=== PATIENT | male | born 1975 | race African-American/Black ===

== ENCOUNTER 2023-01-17 23:28 | Observation (INO) ==
[2023-01-18] MEDS ORDERED: DEXAMETHASONE SOD INJ 4 MG/ML VIAL IV STA (00:09)
[2023-01-18] MEDS ORDERED: HYDROcodone/HOMATROPINE SYRUP 5MG/1.5MG 5ML UDP PO STA (00:09)
[2023-01-18 00:26] LABS: Basophils # (auto) 0.07 K/uL (0-0.2); Basophils % (auto) 0.8 %; Eosinophils % (auto) 1.1 %; Hematocrit (blood only) 44.7 % (42.0-52.0); Hemoglobin 15.2 g/dl (14.0-18.0); Immature Granulocytes # (auto) 0.05 K/uL (0.01-0.20); Immature Granulocytes % (auto) 0.5 %; Lymphocytes # (auto) 2.04 K/uL (1.2-3.4); Mean Corpuscular Hemoglobin 29.4 pg (25.0-34.0); Mean Corpuscular Volume 86.5 fL (80.0-100.0); Mean Platelet Volume 10.4 fL (9.4-12.4); Monocytes # (auto) 1.18 K/uL (0.11-0.59); Monocytes % (auto) 12.7 %; Neutrophils # (auto) 5.84 K/uL (1.40-6.50); Neutrophils % (auto) 62.9 %; Platelet Count 255 K/uL (130-400); RDW Coefficient of Variation 12.7 % (11.5-14.5); Red Blood Count 5.17 M/uL (4.70-6.10); White Blood Count 9.28 K/ul (4.8-10.8)
[2023-01-18 00:44] LABS: Albumin Globulin Ratio 1.3 (0.9-2); Albumin Level 4.3 gm/dl (3.4-5.0); Bilirubin,Total 0.4 mg/dl (0.2-1.0); Calcium 9.1 mg/dl (8.6-10.3); Creatinine Clr Calc Pharmacy 118.3 ml/min; Est GFR (African American) 73.3 ml/min; Est GFR (Non-African American) 63.2 ml/min; Globulin 3.4 gm/dl (2.5-4.0); Potassium 3.3 mmol/L (3.5-5.1); Total Protein 7.7 gm/dl (6.0-8.3)
[2023-01-18 00:50] LABS: Troponin I High Sensitivity 10.5 pg/ml (0-20)
[2023-01-18 01:00] LABS: D Dimer 1000 ug/L FEU (0-500)
[2023-01-18] MEDS ORDERED: IOVERSOL 350 MG 125mL Prefilled Syringe IV ONE (01:11)
--- NOTE | 2023-01-18 01:14 | Emergency Department Note ---
Impression & Plan Left lower lobe pneumonia, Chest tightness Admit to the [facility] ED Provider Note NAME: JAMISON PIERSON AGE: 47 SEX: M ARRIVES VIA: Walk-In INFORMANT: Patient ED PROVIDER(S): Patience Floyd DO CHIEF COMPLAINT: Chest tightness; palpitations; diaphoresis PLAN: Disposition: Admit to the [facility] Condition: Guarded MEDICAL DECISION MAKING: This is a 47-year-old male patient who was diagnosed with bronchitis and started on doxycycline and Tessalon Perles through urgent care who presents to the emergency department with chest tightness, palpitations and diaphoresis tonight. Patient had an elevated D-dimer went for CT scan of the chest which confirmed a left lower lobe pneumonia but no evidence of PE. Patient was started on IV Rocephin and IV Zithromax. EKG revealed no ischemic changes. Troponin was normal. Glucose was 128. Lipase was normal. There was no leukocytosis and stable H&H. Patient was moderately hypertensive and tachycardic. [facility] for [facility] care. Triage Nursing notes reviewed and agree with them. Vital Signs: reviewed and remarkable for tachycardia and hypertension Differential diagnosis: Pneumonia, bronchitis, cardiac ischemia, PE ER treatment provided: Cardiac monitoring Twelve-lead EKG Hycodan cough syrup IV Decadron IV Rocephin IV Zithromax Diagnostics interpreted by me: ECG: Sinus tachycardia at [address] segment elevation or signs of ischemia. No ectopy Cardiac Monitoring: Sinus tachycardia at 105 Laboratory studies: See below Imaging studies: As per my independent interpretation Portable chest x-ray: Cardiomegaly and left lower lobe opacity consistent with pneumonia CT scan of the chest: See stat rad report HPI: 47/M arrives for evaluation of chest tightness and palpitations. Patient had been diagnosed recently with bronchitis at urgent care center and started on doxycycline and Tessalon Perles. He became more concerned tonight as he developed chest tightness, palpitations and diaphoresis. Patient explains that he makes frequent car trips to [place] and has a cardiac history. He was most concerned about the amount of sweating that he has been doing tonight. He has an unrelenting cough which causes him significant chest discomfort. PAST MEDICAL HISTORY:See Below PAST SURGICAL HISTORY:See Below FAMILY HISTORY:See Below SOCIAL HISTORY:See Below HOME MEDICATIONS:See list ALLERGIES:None VITALS:See Below PHYSICAL EXAMINATION: HEENT: Head - normocephalic and atraumatic. Pupils are equal, round, and reactive to light. Extraocular eye muscles are intact, and sclera are anicteric. Nose - moist nasal mucosa without discharge. Mouth - moist buccal mucosa. Oropharynx is nonerythematous and there is no tonsillar exudate or edema noted. Neck: Supple; no JVD or cervical lymphadenopathy Heart: Tachycardic rate and regular rhythm. There is a normal S1 and S2 with no murmurs, clicks, or gallops appreciated. Lungs: Clear to auscultation bilaterally with no wheezes, rales, or rhonchi. Abdomen: Soft, completely nontender, nondistended, with good bowel sounds. There are no palpable pulsatile masses or hepatosplenomegaly. There is no guarding, rigidity, or rebound noted. Extremities: No evidence of cyanosis, clubbing, or edema. There are easily palpable peripheral pulses. Skin: warm and dry with good turgor and no rashes. ED COURSE: Times/Reassessments: 2330 patient was evaluated in room A-10. A complete history and physical was performed. An IV lock was initiated and labs were drawn as above. Twelve-lead EKG was obtained as described above. An order was placed for continuous cardiac monitoring. Patient was in a sinus tachycardia at 105. Patient was given an oral dose of Hycodan cough syrup. He received 10 mg of IV Decadron. A portable chest x-ray was performed. D-dimer came back significantly elevated and the patient went for CT scan of the chest. Patient had a septic protocol performed. I reviewed results with the patient and the he was started on IV Rocephin and IV Zithromax. I discussed the case with the [facility] Hospitalist and they will evaluate for further management. Patience Floyd DO Past Med/Surg History Medical History Dyslipidemia Hx of renal calculi Hypertension Obesity Surgical History History of colonoscopy Social History Smoking Status: Never smoker Hx Alcohol Use: Yes Alcohol type: hard liquor Hx Substance Use: No Preferred Language: Occitan Communication Ability: Effective Security Incident Response Specialist Required: No Beliefs That Will Affect Care: None Current Living Situation: Family Feels Safe at Home: Yes Assistive Devices: CPAP Allergies Allergies Allergy/AdvReac Type Severity Reaction Status Date / Time No Known Allergies Allergy Verified 01/18/23 01:58 Home Meds Home Medications Medication Instructions Recorded Confirmed aspirin 81 mg tablet,delayed 81 mg PO HS 12/02/21 01/18/23 release metoprolol succinate 25 mg 12.5 mg PO HS 12/02/21 01/18/23 tablet,extended release 24 hr hydrochlorothiazide 25 mg tablet 25 mg PO HS 09/27/22 01/18/23 valsartan 320 mg tablet 320 mg PO HS 09/27/22 01/18/23 Previous Rx's Medication Instructions Recorded azithromycin 500 mg tablet 500 mg PO DAILY 3 days #3 tabs 01/18/23 benzonatate 100 mg capsule 100 mg PO TID PRN cough 4 days #14 01/18/23 caps cefdinir 300 mg capsule 300 mg PO BID 7 days #14 caps 01/18/23 guaifenesin 600 mg tablet, 1,200 mg PO Q12 7 days #28 tabs 01/18/23 extended release 12 hr (Mucinex) methylprednisolone 4 mg tablets in 4 mg PO DAILY #21 ea 01/18/23 a dose pack (Medrol (Han)) Results & Data (ED) Vital Signs Vital Signs - 24 hr 01/18/23 01:30 01/18/23 01:31 01/18/23 01:40 Temperature Temperature Source Pulse Rate 78 78 82 Pulse Rate from SpO2 Sensor 78 78 83 Respiratory Rate 13 10 L 18 Blood Pressure 158/92 H Blood Pressure Mean 114 Pulse Oximetry 94 93 92 01/18/23 01:50 01/18/23 02:00 01/18/23 02:01 Temperature Temperature Source Pulse Rate 77 77 79 Pulse Rate from SpO2 Sensor 77 76 80 Respiratory Rate 19 19 16 Blood Pressure 152/98 H Blood Pressure Mean 116 Pulse Oximetry 93 96 92 01/18/23 02:10 01/18/23 02:20 01/18/23 02:29 Temperature Temperature Source Pulse Rate 70 72 74 Pulse Rate from SpO2 Sensor 70 74 Respiratory Rate 19 15 Blood Pressure Blood Pressure Mean Pulse Oximetry 96 95 07/20/23 02:30 01/18/23 02:31 01/18/23 02:40 Temperature Temperature Source Pulse Rate 72 68 84 Pulse Rate from SpO2 Sensor 69 70 82 Respiratory Rate 19 14 18 Blood Pressure 165/91 H Blood Pressure Mean 115 Pulse Oximetry 96 95 95 01/18/23 02:50 01/18/23 03:00 01/18/23 03:10 Temperature Temperature Source Pulse Rate 73 74 70 Pulse Rate from SpO2 Sensor 72 75 68 Respiratory Rate 19 18 17 Blood Pressure Blood Pressure Mean Pulse Oximetry 95 95 95 01/18/23 03:20 01/18/23 03:30 01/18/23 02:00 Temperature 36.8 C Temperature Source Oral Pulse Rate 69 72 Pulse Rate from SpO2 Sensor 70 69 Respiratory Rate 16 15 Blood Pressure Blood Pressure Mean Pulse Oximetry 95 95 Laboratory Data 01/17/23 23:54 01/17/23 23:54 Lab Results 01/17/23 01/17/23 01/17/23 Range/Units 23:54 23:54 23:54 WBC 9.28 (4.8-10.8) K/ul RBC 5.17 (4.70-6.10) M/uL Hgb 15.2 (14.0-18.0) g/dl Hct 44.7 (42.0-52.0) % MCV 86.5 (80.0-100.0) fL MCH 29.4 (25.0-34.0) pg MCHC 34.0 (32.0-36.0) g/dL RDW Std Deviation 40.0 (36.4-46.3) fL RDW Coeff of Rob 12.7 (11.5-14.5) % Plt Count 255 (130-400) K/uL MPV 10.4 (9.4-12.4) fL Immature Gran % (Auto) 0.5 % Neut % (Auto) 62.9 % Lymph % (Auto) 22.0 % [place] % (Auto) 12.7 % Eos % (Auto) 1.1 % Baso % (Auto) 0.8 % Neut # (Auto) 5.84 (1.40-6.50) K/uL Lymph # (Auto) 2.04 (1.2-3.4) K/uL [place] # (Auto) 1.18 H (0.11-0.59) K/uL Eos # (Auto) 0.10 (0-0.50) K/uL Baso # (Auto) 0.07 (0-0.2) K/uL Immature Gran # (Auto) 0.05 (0.01-0.20) K/uL D-Dimer 1000 H* (0-500) ug/L FEU Sodium 137 (136-145) mmol/L Potassium 3.3 L (3.5-5.1) mmol/L Chloride 98 (98-107) mmol/L Carbon Dioxide 28 (21-32) mmol/L Anion Gap 11 (3-11) BUN 16 (6-23) mg/dl Creatinine 1.33 (0.6-1.4) mg/dl Est Cr Clr Drug Dosing 118.3 ml/min Est GFR ( Amer) 73.3 ml/min Est GFR (Non-Af Amer) 63.2 ml/min BUN/Creatinine Ratio 12.0 (10-20) Glucose 128 H (70-99(Fasting)) mg/dl Lactate (0.4-2.0) mmol/L Calcium 9.1 (8.6-10.3) mg/dl Total Bilirubin 0.4 (0.2-1.0) mg/dl AST 33 (13-39) U/L ALT 26 (7-52) U/L Alkaline Phosphatase 71 (34-104) U/L Troponin I High Sens 10.5 (0-20) pg/ml Total Protein 7.7 (6.0-8.3) gm/dl Albumin 4.3 (3.4-5.0) gm/dl Globulin 3.4 (2.5-4.0) gm/dl Albumin/Globulin Ratio 1.3 (0.9-2) Lipase 25 (11-82) U/L Procalcitonin (0-0.5) ng/ml SARS-CoV-2, RNA, NAAT (NEGATIVE) 01/18/23 01/18/23 01/18/23 Range/Units 02:52 02:52 03:06 WBC (4.8-10.8) K/ul RBC (4.70-6.10) M/uL Hgb (14.0-18.0) g/dl Hct (42.0-52.0) % MCV (80.0-100.0) fL MCH (25.0-34.0) pg MCHC (32.0-36.0) g/dL RDW Std Deviation (36.4-46.3) fL RDW Coeff of Rob (11.5-14.5) % Plt Count (130-400) K/uL MPV (9.4-12.4) fL Immature Gran % (Auto) % Neut % (Auto) % Lymph % (Auto) % [place] % (Auto) % Eos % (Auto) % Baso % (Auto) % Neut # (Auto) (1.40-6.50) K/uL Lymph # (Auto) (1.2-3.4) K/uL [place] # (Auto) (0.11-0.59) K/uL Eos # (Auto) (0-0.50) K/uL Baso # (Auto) (0-0.2) K/uL Immature Gran # (Auto) (0.01-0.20) K/uL D-Dimer (0-500) ug/L FEU Sodium (136-145) mmol/L Potassium (3.5-5.1) mmol/L Chloride (98-107) mmol/L Carbon Dioxide (21-32) mmol/L Anion Gap (3-11) BUN (6-23) mg/dl Creatinine (0.6-1.4) mg/dl Est Cr Clr Drug Dosing ml/min Est GFR ( Amer) ml/min Est GFR (Non-Af Amer) ml/min BUN/Creatinine Ratio (10-20) Glucose (70-99(Fasting)) mg/dl Lactate 0.9 (0.4-2.0) mmol/L Calcium (8.6-10.3) mg/dl Total Bilirubin (0.2-1.0) mg/dl AST (13-39) U/L ALT (7-52) U/L Alkaline Phosphatase (34-104) U/L Troponin I High Sens (0-20) pg/ml Total Protein (6.0-8.3) gm/dl Albumin (3.4-5.0) gm/dl Globulin (2.5-4.0) gm/dl Albumin/Globulin Ratio (0.9-2) Lipase (11-82) U/L Procalcitonin < 0.05 (0-0.5) ng/ml SARS-CoV-2, RNA, NAAT NEGATIVE (NEGATIVE) Administered Medications Discontinued Medications Dexamethasone (Dexamethasone Sod Inj 4 Mg/Ml Vial) 10 mg IV NOW STA Stop: 01/18/23 00:10 Last Admin: 01/18/23 00:18 Dose: 10 mg Documented By: NHUNG Guaifenesin (Guaifenesin 600 Mg Tabcr) 1,200 mg PO Q12 JARAD Stop: 02/17/23 08:59 Last Admin: 01/18/23 08:07 Dose: 1,200 mg Documented By: KALEE Hydrocodone Bit/Homatropine Methylb (Hydrocodone/Homatropine Syrup 5mg/1.5mg 5ml Udp) 10 ml PO NOW STA Stop: 01/18/23 00:10 Last Admin: 01/18/23 00:19 Dose: 10 ml Documented By: NHUNG Ceftriaxone Sodium 1,000 mg/ (Dextrose) 50 mls @ 100 mls/hr IV NOW STA Stop: 01/18/23 03:10 Last Infusion: 01/18/23 04:49 Dose: 0 mls/hr Documented By: Admin: 01/18/23 02:59 Dose: 100 mls/hr Documented By: NHUNG Azithromycin 500 mg/ Dextrose 255 mls @ 125 mls/hr IV ONE ONE Stop: 01/18/23 04:43 Last Infusion: 01/18/23 06:06 Dose: 0 mls/hr Documented By: Admin: 01/18/23 03:40 Dose: 125 mls/hr Documented By: ANISH Methylprednisolone 40 mg/ (Syringe) 0.64 mls @ 1.5 mls/min IV Q8H JARAD Stop: 02/17/23 05:21 Last Admin: 01/18/23 13:57 Dose: 1.5 mls/min Documented By: Admin: 01/18/23 05:52 Dose: 1.5 mls/min Documented By: NILSON Ceftriaxone Sodium 2,000 mg/ (Dextrose) 70 mls @ 100 mls/hr IV Q24H JARAD; Protocol Stop: 01/25/23 11:29 Last Infusion: 01/18/23 14:49 Dose: 0 mls/hr Documented By: Admin: 01/18/23 13:57 Dose: 100 mls/hr Documented By: KALEE Ioversol (Ioversol 350 Mg 125ml Prefilled Syringe) 125 ml IV ONCE ONE Stop: 01/18/23 01:12 Last Admin: 01/18/23 01:11 Dose: 115 ml Documented By: PRANAV Potassium Chloride (Potassium Chloride Crtab 20 Meq Tabcr) 40 meq PO NOW STA Stop: 01/18/23 04:03 Last Admin: 01/18/23 04:45 Dose: 40 meq Documented By: NHUNG Discharge Plan Visit Data Chief Complaint: Chest Pain Stated Complaint: CHEST PAIN,COUGH,LIGHT HEADED,MIXED MEDICINE ED Provider: Patience Floyd Discharge Problem: Left lower lobe pneumonia, Chest tightness Patient Disposition: Admitted As Inpatient Discharge Instructions Interventions: ED Discharge Assessment Last Done: 01/18/23 05:00 Left lower lobe pneumonia Qualifiers: Pneumonia type: due to unspecified organism Qualified Code(s): J18.9 - Pneumonia, unspecified organism
--- NOTE | 2023-01-18 01:46 | CT Scan Report ---
Exam(s): CTA CHEST IV Amt: 115 ML OPTIRAY 350 EXAM: CT Angiography Chest With Intravenous Contrast CLINICAL HISTORY: Evaluate for PE. TECHNIQUE: Axial computed tomographic angiography images of the chest with intravenous contrast. CTDI is 28.14 mGy and DLP is 951.03 mGy-cm. Automated exposure control was utilized for the study. A dose lowering technique was utilized adhering to the principles of ALARA. MIP reconstructed images were created and reviewed. COMPARISON: No relevant prior studies available. FINDINGS: Limitations: There is respiratory artifact, which degrades image quality on multiple image slices. Pulmonary arteries: Accounting for limitations with respiratory artifact, there is no definite evidence for pulmonary embolism. Aorta: No acute findings. No thoracic aortic aneurysm. Lungs: Patchy opacities involving the left anterior basal segment and less prominently in the lateral basal segment. The lungs are otherwise clear. Pleural space: Unremarkable. No significant effusion. No pneumothorax. Heart: Unremarkable. No cardiomegaly. No significant pericardial effusion. Bones/joints: No acute fracture. No dislocation. Soft tissues: Unremarkable. Lymph nodes: Unremarkable. No enlarged lymph nodes. IMPRESSION: 1. Accounting for limitations with respiratory artifact, there is no definite evidence for pulmonary embolism. 2. Patchy opacities involving the left anterior basal segment and less prominently in the lateral basal segment. Findings are most consistent with left lower lobe pneumonia. No pleural effusion or pneumothorax. Electronically signed by: Richard Lindsay MD 01/18/23 01:45 AM
[2023-01-18] MEDS ORDERED: AZITHROMYCIN 500 MG in DEXTROSE 5% 250 ML IV ONE (02:41)
[2023-01-18] MEDS ORDERED: cefTRIAXone SODIUM 1,000 MG in DEXTROSE 5% AD-VAN 50 ML IV STA (02:41)
--- NOTE | 2023-01-18 03:34 | History & Physical Report ---
Date of Service January 18, 2023 Assessment & Plan (1) Bronchopneumonia: (2) Dyslipidemia: (3) Hypertension: Plan Bronchitis with pneumonia/ ?Long COVID- Received from the ED: Ceftriaxone 1 g IV, azithromycin 500 mg IV, dexamethasone 10 mg IV and Hycodan 10 mL Ceftriaxone 2 g IV daily Azithromycin 500 mg IV daily Methylprednisolone 40 mg IV every 8 hours Duonebs every 4 hours while awake and every 2 hours when necessary. Continue Tessalon Perles 100 mg p.o. 3 times daily as needed as outpatient CT angiography negative for PE, but did show left lower lobe infiltrate Patient with harsh bronchitic cough while in the ED during the examination Chest heaviness- CTA negative for PE Initial EKG without significant changes May be secondary to bronchitis and pneumonia The patient will be admitted to telemetry for serial cardiac enzymes, serial EKG's, cardiac rhythm monitoring Reports she had normal echocardiogram with Dr. Santoyo about 4 months ago Hypertension/hypokalemia- Continue hydrochlorothiazide, metoprolol succinate, valsartan and and aspirin Start potassium chloride 20 mEq p.o. daily Potassium 3.3 on admission. Give Klor-Con 40 mEq p.o. now Follow serial BMP and magnesium levels History of Present Illness Chief Complaint: The patient presents to the emergency department with complaint of chest tightness across from under his breast on the left side to his sternum, palpitations, worsening cough, and sweats. Primary Care Provider: Ronaldo Ibanez MD The patient is a 47-year-old male with past medical history including dyslipidemia, hypertension and obesity. He presents to the emergency department with report of feeling fatigued since he had COVID a while ago, and a chronic nonproductive cough. He notes over the past several days symptoms of chest heaviness and tightness as described, a more harsh cough, and palpitations. Allergies Allergy/AdvReac Type Severity Reaction Status Date / Time No Known Allergies Allergy Verified 01/18/23 01:58 Home Medications Medication Instructions Recorded Confirmed Type aspirin 81 mg tablet,delayed 81 mg PO HS 12/02/21 01/18/23 History release metoprolol succinate 25 mg 12.5 mg PO HS 12/02/21 01/18/23 History tablet,extended release 24 hr hydrochlorothiazide 25 mg tablet 25 mg PO HS 09/27/22 01/18/23 History valsartan 320 mg tablet 320 mg PO HS 09/27/22 01/18/23 History benzonatate 100 mg capsule 100 mg PO TID PRN Cough 01/18/23 01/18/23 History doxycycline hyclate 100 mg capsule 100 mg PO BID 01/18/23 01/18/23 History Past Med/Surg History Medical History Dyslipidemia Hx of renal calculi Hypertension Obesity Surgical History History of colonoscopy Social History Smoking Status: Never smoker Preferred Language: Mauritian Feels Safe at Home: Yes Review of Systems Review of Systems: The patient lower extremity swelling, sore throat, fevers, chills, sweats, nausea, vomiting, diarrhea , constipation, abdominal pain, pelvic pain, blood in urine or stool, dysuria, urinary frequency or urgency, lightheadedness, dizziness, headache, memory loss, loss of consciousness, rash, abnormal bruising or bleeding, imbalance, focal or generalized weakness, numbness or tingling in arms or legs, generalized arthralgias or myalgias, back or neck pain, or night sweats. The review of systems is otherwise negative other than for that already noted above, and at least 10 systems have been reviewed. Physical Exam Physical Exam: The patient is awake, alert and oriented 3, well developed and well nourished, normocephalic and atraumatic, lying in bed and in no acute distress. HEENT--PERRL, EOMI, mucous membranes and oropharynx normal. Neck--supple. No JVD. No bruits. Thyroid normal, trachea midline, no adenopathy. Heart--normal S1 and S2. No murmurs, rubs or gallops. Lungs--clear bilaterally, no respiratory distress, no accessory muscle use. Abdomen--normal bowel sounds and soft. Nontender. Nondistended, no hernias or masses, no organomegaly. Extremities--no cyanosis or clubbing. No edema. There are good distal pulses b/l. Dermatologic--normal skin turgor, normal color, no abnormal lymph nodes, no rash. Neurologic--cranial nerves II through XII grossly intact. Rheumatologic--normal range of motion. Psychiatric--normal affect. Results & Data Results & Data Vital Signs (Past 12 Hours) Vital Signs Temp Pulse Resp BP Pulse Ox O2 Del Method 01/18/23 02:29 74 01/18/23 02:20 72 15 95 01/18/23 02:10 70 19 96 01/18/23 02:01 79 16 152/98 H 92 01/18/23 02:00 77 19 96 01/18/23 01:50 77 19 93 01/18/23 01:40 82 18 92 01/18/23 01:31 78 10 L 158/92 H 93 01/18/23 01:30 78 13 94 01/18/23 01:20 77 14 93 01/18/23 01:17 93 01/18/23 01:02 82 22 134/52 L 92 01/18/23 01:00 78 13 92 01/18/23 00:52 81 12 132/81 93 01/18/23 00:50 83 14 93 01/18/23 00:40 85 11 L 93 01/18/23 00:30 92 H 12 95 01/18/23 00:20 89 12 93 01/18/23 00:10 104 H 15 94 01/18/23 00:00 100 H 33 H 96 01/17/23 23:50 114 H 23 01/17/23 23:42 103 H 16 173/104 H 94 01/18/23 00:09 105 H 22 94 Room Air 01/17/23 23:28 Room Air 01/17/23 23:43 105 H 01/17/23 23:32 36.2 C L 113 H 20 176/100 H 96 Room Air Laboratory Results Laboratory Results WBC 9.28 K/ul (4.8-10.8) 01/17/23 23:54 RBC 5.17 M/uL (4.70-6.10) 01/17/23 23:54 Hgb 15.2 g/dl (14.0-18.0) 01/17/23 23:54 Hct 44.7 % (42.0-52.0) 01/17/23 23:54 MCV 86.5 fL (80.0-100.0) 01/17/23 23:54 MCH 29.4 pg (25.0-34.0) 01/17/23 23:54 MCHC 34.0 g/dL (32.0-36.0) 01/17/23 23:54 RDW Std Deviation 40.0 fL (36.4-46.3) 01/17/23 23:54 RDW Coeff of Rob 12.7 % (11.5-14.5) 01/17/23 23:54 Plt Count 255 K/uL (130-400) 01/17/23 23:54 MPV 10.4 fL (9.4-12.4) 01/17/23 23:54 Immature Gran % (Auto) 0.5 % 01/17/23 23:54 Neut % (Auto) 62.9 % 01/17/23 23:54 Lymph % (Auto) 22.0 % 01/17/23 23:54 [place] % (Auto) 12.7 % 01/17/23 23:54 Eos % (Auto) 1.1 % 01/17/23 23:54 Baso % (Auto) 0.8 % 01/17/23 23:54 Neut # (Auto) 5.84 K/uL (1.40-6.50) 01/17/23 23:54 Lymph # (Auto) 2.04 K/uL (1.2-3.4) 01/17/23 23:54 [place] # (Auto) 1.18 K/uL (0.11-0.59) H 01/17/23 23:54 Eos # (Auto) 0.10 K/uL (0-0.50) 01/17/23 23:54 Baso # (Auto) 0.07 K/uL (0-0.2) 01/17/23 23:54 Immature Gran # (Auto) 0.05 K/uL (0.01-0.20) 01/17/23 23:54 D-Dimer 1000 ug/L FEU (0-500) H* 01/17/23 23:54 Sodium 137 mmol/L (136-145) 01/17/23 23:54 Potassium 3.3 mmol/L (3.5-5.1) L 01/17/23 23:54 Chloride 98 mmol/L (98-107) 01/17/23 23:54 Carbon Dioxide 28 mmol/L (21-32) 01/17/23 23:54 Anion Gap 11 (3-11) 01/17/23 23:54 BUN 16 mg/dl (6-23) 01/17/23 23:54 Creatinine 1.33 mg/dl (0.6-1.4) 01/17/23 23:54 Est Cr Clr Drug Dosing 118.3 ml/min 01/17/23 23:54 Est GFR ( Amer) 73.3 ml/min 01/17/23 23:54 Est GFR (Non-Af Amer) 63.2 ml/min 01/17/23 23:54 BUN/Creatinine Ratio 12.0 (10-20) 01/17/23 23:54 Glucose 128 mg/dl (70-99(Fasting)) H 01/17/23 23:54 Lactate 0.9 mmol/L (0.4-2.0) 01/18/23 02:52 Calcium 9.1 mg/dl (8.6-10.3) 01/17/23 23:54 Total Bilirubin 0.4 mg/dl (0.2-1.0) 01/17/23 23:54 AST 33 U/L (13-39) 01/17/23 23:54 ALT 26 U/L (7-52) 01/17/23 23:54 Alkaline Phosphatase 71 U/L (34-104) 01/17/23 23:54 Troponin I High Sens 10.5 pg/ml (0-20) 01/17/23 23:54 Total Protein 7.7 gm/dl (6.0-8.3) 01/17/23 23:54 Albumin 4.3 gm/dl (3.4-5.0) 01/17/23 23:54 Globulin 3.4 gm/dl (2.5-4.0) 01/17/23 23:54 Albumin/Globulin Ratio 1.3 (0.9-2) 01/17/23 23:54 Lipase 25 U/L (11-82) 01/17/23 23:54 Procalcitonin < 0.05 ng/ml (0-0.5) 01/18/23 02:52 SARS-CoV-2, RNA, NAAT NEGATIVE (NEGATIVE) 01/18/23 03:06 Impressions Chest CTA 01/18/23 01:02 Exam(s): CTA CHEST IV Amt: 115 ML OPTIRAY 350 EXAM: CT Angiography Chest With Intravenous Contrast CLINICAL HISTORY: Evaluate for PE. TECHNIQUE: Axial computed tomographic angiography images of the chest with intravenous contrast. CTDI is 28.14 mGy and DLP is 951.03 mGy-cm. Automated exposure control was utilized for the study. A dose lowering technique was utilized adhering to the principles of ALARA. MIP reconstructed images were created and reviewed. COMPARISON: No relevant prior studies available. FINDINGS: Limitations: There is respiratory artifact, which degrades image quality on multiple image slices. Pulmonary arteries: Accounting for limitations with respiratory artifact, there is no definite evidence for pulmonary embolism. Aorta: No acute findings. No thoracic aortic aneurysm. Lungs: Patchy opacities involving the left anterior basal segment and less prominently in the lateral basal segment. The lungs are otherwise clear. Pleural space: Unremarkable. No significant effusion. No pneumothorax. Heart: Unremarkable. No cardiomegaly. No significant pericardial effusion. Bones/joints: No acute fracture. No dislocation. Soft tissues: Unremarkable. Lymph nodes: Unremarkable. No enlarged lymph nodes. IMPRESSION: 1. Accounting for limitations with respiratory artifact, there is no definite evidence for pulmonary embolism. 2. Patchy opacities involving the left anterior basal segment and less prominently in the lateral basal segment. Findings are most consistent with left lower lobe pneumonia. No pleural effusion or pneumothorax. Electronically signed by: Richard Lindsay MD 01/18/23 01:45 AM Code Status & VTE Plan Code Status Full code VTE Prophylaxis Plan VTE Prophylaxis will be ordered: Yes PG Care Time/CCT Total # of Minutes Spent Total Time Spent with Patient: Total time spent is greater than 50% in coordination of care (as documented) at patient's floor/unit and/or counseling patient: Coding Level of Care Code 74178 INT INP/OBS CARE 3/75MIN Diagnoses Bronchopneumonia J18.0 Dyslipidemia E78.5 Hypertension I10
[2023-01-18] MEDS ORDERED: POTASSIUM CHLORIDE CRTAB 20 MEQ TABCR PO STA (04:02)
[2023-01-18] MEDS ORDERED: BENZONATATE 100 MG CAPSULE PO PRN (05:22)
[2023-01-18] MEDS ORDERED: ACETAMINOPHEN 325 MG TAB PO PRN (05:22)
[2023-01-18] MEDS ORDERED: ONDANSETRON INJ 2 MG/ML 2 ML VIAL IV PRN (05:22)
[2023-01-18] MEDS: methylPREDNISolone 40 MG in SYRINGE 0 ML IV SCH ×2 (05:52→13:57)
--- NOTE | 2023-01-18 07:25 | XRay Report ---
XR chest 1V portable CLINICAL HISTORY: Chest pain, nonspecific TECHNIQUE: Single frontal radiograph of the chest was obtained. Comparison: Comparison is made to chest radiograph 09/27/2022 FINDINGS: Exam is limited by underpenetration. The cardiomediastinal silhouette is normal. The lungs are clear. No evidence of pleural effusion or pneumothorax. IMPRESSION: No acute chest disease. ACT 112: Negative or not required by law. Electronically signed by: Rudy Velazquez M.D. 01/18/2023 7:24 AM
--- NOTE | 2023-01-18 08:02 | Hospitalist Progress Note ---
Date of Service January 18, 2023 Assessment & Plan (1) Bronchopneumonia: (2) Dyslipidemia: (3) Hypertension: Plan Polo is a 47 year old male with history of obesity, dyslipidemia, and hypertension who presents for worsening fatigue and chronic cough who was admitted for management of pneumonia (LLL). Left Lower Lobe PNA/Bronchitis - CTA: No evidence of PE, evidence of LLL opacities - ED: Ceftriaxone 1 g IV, azithromycin 500 mg IV, dexamethasone 10 mg IV and Hycodan 10 mL - Antibiotic Mgmt: Continue CTX 2 g IV daily, Azithromycin 500 mg IV daily, and Methylprednisolone 40 mg IV q8h - Continue Duoneb q4h and Tessalon Perles 100 mg PO TID - Recommending pulmonary toilet Chest Heaviness - CTA: W/o evidence of PE - EKG: Unremarkable - Possible etiology a/w PNA/bronchitis - Follow troponin, EKG, and rhythm - Follows with Cardiology (Dr. Santoyo) HTN - Continue HCTZ, metoprolol, valsartan, and aspirin Hypokalemia (3.3) - Possibly associated with antihypertensives - Continue to follow BMP/Mg levels - Received supplementation on admission FEN: Heart Healthy, no IVF Code status: Full Code DVT ppx: None? Isolation: None Dispo:Med/Tele Admission and Anticipated Discharge Date Admission Date: January 18, 2023 Subjective 01/18: Physical Exam Physical Exam: The patient is awake, alert and oriented 3, well developed and well nourished, normocephalic and atraumatic, lying in bed and in no acute distress. HEENT--PERRL, EOMI, mucous membranes and oropharynx normal. Neck--supple. No JVD. No bruits. Thyroid normal, trachea midline, no adenopathy. Heart--normal S1 and S2. No murmurs, rubs or gallops. Lungs--clear bilaterally, no respiratory distress, no accessory muscle use. Abdomen--normal bowel sounds and soft. Nontender. Nondistended, no hernias or masses, no organomegaly. Extremities--no cyanosis or clubbing. No edema. There are good distal pulses b/l. Dermatologic--normal skin turgor, normal color, no abnormal lymph nodes, no rash. Neurologic--cranial nerves II through XII grossly intact. Rheumatologic--normal range of motion. Psychiatric--normal affect. Results & Data Results & Data Vital Signs (Past 12 Hours) Vital Signs Temp Pulse Resp BP BP Pulse Ox O2 Del Method 01/18/23 05:00 Room Air 01/18/23 05:29 Room Air 01/18/23 05:29 36.6 C 18 147/86 H 94 Room Air 01/18/23 02:00 36.8 C 01/18/23 04:47 72 23 134/96 96 01/18/23 04:40 69 20 93 01/18/23 04:30 83 22 94 01/18/23 04:20 67 15 95 01/18/23 04:10 71 17 95 01/18/23 04:00 71 17 94 01/18/23 03:50 79 19 94 01/18/23 03:40 68 16 95 01/18/23 03:30 72 15 95 01/18/23 03:20 69 16 95 01/18/23 03:10 70 17 95 01/18/23 03:00 74 18 95 01/18/23 02:50 73 19 95 01/18/23 02:40 84 18 95 01/18/23 02:31 68 14 165/91 H 95 01/18/23 02:30 72 19 96 01/18/23 02:29 74 01/18/23 02:20 72 15 95 01/18/23 02:10 70 19 96 01/18/23 02:01 79 16 152/98 H 92 01/18/23 02:00 77 19 96 01/18/23 01:50 77 19 93 01/18/23 01:40 82 18 92 01/18/23 01:31 78 10 L 158/92 H 93 01/18/23 01:30 78 13 94 01/18/23 01:20 77 14 93 01/18/23 01:17 93 01/18/23 01:02 82 22 134/52 L 92 01/18/23 01:00 78 13 92 01/18/23 00:52 81 12 132/81 93 01/18/23 00:50 83 14 93 01/18/23 00:40 85 11 L 93 01/18/23 00:30 92 H 12 95 01/18/23 00:20 89 12 93 01/18/23 00:10 104 H 15 94 01/18/23 00:00 100 H 33 H 96 01/17/23 23:50 114 H 23 01/17/23 23:42 103 H 16 173/104 H 94 01/18/23 00:09 105 H 22 94 Room Air 01/17/23 23:28 Room Air 01/17/23 23:43 105 H 01/17/23 23:32 36.2 C L 113 H 20 176/100 H 96 Room Air Resident Activity Tracking Resident Involvement: Resident Care Provided Care Provided: Adult Hospital Medicine
[2023-01-18] MEDS ORDERED: guaiFENesin 600 MG TABCR PO SCH (09:00)
[2023-01-18] MEDS ORDERED: cefTRIAXone SODIUM 2,000 MG in DEXTROSE 5% 50 ML IV SCH (11:30)
--- NOTE | 2023-01-18 14:34 | Electrocardiogram Report ---
Test Reason : Blood Pressure : / mmHG Vent. Rate : 103 BPM Atrial Rate : 103 BPM P-R Int : 166 ms QRS Dur : 092 ms QT Int : 336 ms P-R-T Axes : 063 055 036 degrees QTc Int : 440 ms Sinus tachycardia Incomplete right bundle branch block Borderline ECG When compared with ECG of 27-SEP-2022 17:59, Vent. rate has increased BY 34 BPM Confirmed by Curtis Pimentel ([id number]) on 01/18/2023 2:34:13 PM Referred By: REFERRED SELF Confirmed By:Félix Pimentel
--- NOTE | 2023-01-18 16:08 | Discharge Summary ---
Date of Service January 18, 2023 Admission HPI Per Admitting Provider The patient is a 47-year-old male with past medical history including dyslipidemia, hypertension and obesity. He presents to the emergency department with report of feeling fatigued since he had COVID a while ago, and a chronic nonproductive cough. He notes over the past several days symptoms of chest heaviness and tightness as described, a more harsh cough, and palpitations. Admission Exam Per Admitting Provider The patient is awake, alert and oriented 3, well developed and well nourished, normocephalic and atraumatic, lying in bed and in no acute distress. HEENT--PERRL, EOMI, mucous membranes and oropharynx normal. Neck--supple. No JVD. No bruits. Thyroid normal, trachea midline, no adenopathy. Heart--normal S1 and S2. No murmurs, rubs or gallops. Lungs--clear bilaterally, no respiratory distress, no accessory muscle use. Abdomen--normal bowel sounds and soft. Nontender. Nondistended, no hernias or masses, no organomegaly. Extremities--no cyanosis or clubbing. No edema. There are good distal pulses b/l. Dermatologic--normal skin turgor, normal color, no abnormal lymph nodes, no rash. Neurologic--cranial nerves II through XII grossly intact. Rheumatologic--normal range of motion. Psychiatric--normal affect. Principal Diagnosis Left Lower Lobe Pneumonia Discharge Exam Gen: NAD, alert, interactive, obese body habitus HEENT: Supple, no LAD, no thyromegaly, no JVD Resp:Non-labored, left sided wheezing, left lower lobe rhonchi, otherwise CTA CV:RRR, normal S1/S2, no M/R/G Abd: Soft, non-distended, no TTP, normoactive bowels, no masses Extr: 2+ dp bilaterally, no edema Skin: No rashes lesions or erythema Discharge Data Allergies Allergy/AdvReac Type Severity Reaction Status Date / Time No Known Allergies Allergy Verified 01/18/23 01:58 Consultations 01/18/23 03:21 ED Decision to Admit Stat Ordered Studies 01/18/23 01:02 CT angio chest PE protocol Stat Hospital Course (1) Bronchopneumonia: (2) Dyslipidemia: (3) Hypertension: Plan Polo is a 47 year old male with history of obesity, dyslipidemia, and hypertensi on who presents for worsening fatigue and chronic cough who was admitted for management of pneumonia (LLL). Left Lower Lobe PNA/Bronchitis - CTA: No evidence of PE, evidence of LLL opacities - ED: Ceftriaxone 1 g IV, azithromycin 500 mg IV, dexamethasone 10 mg IV and Hycodan 10 mL - Inpt Antibiotic Mgmt: CTX 2 g IV daily, Azithromycin 500 mg IV daily, and Methylprednisolone 40 mg IV q8h - Continue Duoneb q4h and Tessalon Perles 100 mg PO TID - Recommending pulmonary toilet --- Continue antibiotic course with Cefdinir 300 mg PO BID for 7 days, Azithro mycin 500 mg PO daily for 3 days, and complete Medrol dose han --- May continue Tessalon Perles and Mucinex for symptom control as outpatient --- Recommending ongoing pulmonary toilet Chest Heaviness - CTA: W/o evidence of PE - EKG: Unremarkable - Possible etiology a/w PNA/bronchitis - Follow troponin, EKG, and rhythm - Follows with Cardiology (Dr. Santoyo) --- Concern exist for underlying restrictive pulmonary disease (AALIYAH/OHS) vs COPD --- Recommending outpatient evaluation with sleep study and pulmonary function testing HTN - Continue HCTZ, metoprolol, valsartan, and aspirin Hypokalemia (3.3) - Possibly associated with antihypertensives - Continue to follow BMP/Mg levels - Received supplementation on admission FEN: Heart Healthy Code status: Full Code DVT ppx: Ambulation Isolation: None Dispo:Home Total Time Total Time Spent Total Time Spent (In Minutes): <30 Discharge Plan Discharge Items Patient Disposition: Home - Self-Care Reason For Visit: BRONCHOPNEUMONIA Discharge Diagnosis: LLL Pneumonia Chronic Bronchitis Activity: Per Instructions section Non-emergency contact: Primary Care Provider Call non-emergency contact if: you have any medication questions, your symptoms worsen and you have a fever Follow-up/Referrals: Ronaldo Ibanez MD [Primary Care Provider] - 01/25/23 3:45 pm (f/u with Dr. Barahona.) Diet: Heart Healthy Addtl Attending Provider Instructions: You presented to the hospital for evaluation of worsening fatigue in the setting of a chronic cough. Upon evaluation, it was noted that you had a left lower lobe pneumonia. You were admitted to the hospital and started on IV antibiotics, Ceftriaxone and Azithromycin. Because of your chronic, deep cough, you were also started on steroids to aid in decreasing inflammation in your lungs. You symptoms improved notably after receiving antibiotics and steroids and your vitals remained stable, thus, you will be discharged to home to continue treating your lung infection with oral antibiotics and steroids. During your inpatient evaluation, it was noted that you chronic cough could be a sign of underlying COPD (chronic obstructive pulmonary disease) or AALIYAH (obstructive sleep apnea). It is recommended that you follow up with your Primary Care Physician (Dr. Ibanez) for additional evaluation with pulmonary function testing and polysomnography (sleep study). While inpatient, you mentioned that your mom has emphysema and that you have never smoked, because of these two details, and your presentation with chronic cough, it is strongly recommended that you proceed with evaluation for COPD and AALIYAH in the future as an outpatient. Recommendations: - Upon discharge, continue taking Cedinir 300 mg twice daily for an additional 6 days - Upon discharge, continue taking Azithromycin 500 mg every day for an additional 2 days - Upon discharge, continue taking Medrol dose pack (which will taper over 6 days) - You may continue to take Mucinex and Tessalon Perles upon discharge for symptom relief, an Rx will be sent to your pharmacy for the Tessalon Perles It was a pleasure to be a part of your care, Dr. Aidan Cameron Pending Studies at Discharge: No Stand-Alone Forms: My [facility], Smoking Cessation Medications and DC Order Prescriptions: New benzonatate 100 mg Capsule 100 mg PO TID PRN (Reason: cough) 4 Days Qty: 14 0RF guaifenesin [Mucinex] 600 mg Tablet Extended Release 12hr 1,200 mg PO Q12 7 Days Qty: 28 0RF azithromycin 500 mg tablet 500 mg PO DAILY 3 Days Qty: 3 0RF cefdinir 300 mg capsule 300 mg PO BID 7 Days Qty: 14 0RF methylprednisolone [Medrol (Han)] 4 mg tablets,dose pack 4 mg PO DAILY Qty: 21 0RF Continued aspirin 81 mg Tablet,Delayed Release (Dr/Ec) 81 mg PO HS metoprolol succinate 25 mg tablet extended release 24 hr 12.5 mg PO HS valsartan 320 mg tablet 320 mg PO HS hydrochlorothiazide 25 mg tablet 25 mg PO HS Discontinued doxycycline hyclate 100 mg capsule 100 mg PO BID benzonatate 100 mg capsule 100 mg PO TID PRN (Reason: Cough) Discharge Orders: Discharge Order (Routine); Ordered 01/18/23 Ordered By: Aidan Cameron Admission Data Admit Date/Time: 01/18/23 03:33 Attending Provider: Julito King Admit Provider: Esteban Neumann Primary Care Provider: Ronaldo Ibanez Other Providers: Esteban Neumann Other Interventions: Discharge Summary Assessment (RN) Last Done: 01/18/23 16:03 Supervising Physician Co-Signing Physician Notes I personally examined the patient and verified all potts points of history and exam, discussed case, and agree with decision making with Dr Nisha lizarraga. feels ok to go home vitals noted nad heent nc at mmm breathing unlabored no accessory muscles good effort skin no rashes no pallor or icterus CAP - safe for home, PO abx, outpt f/u ?OHS - outpt PFTs, has CPAP needs [place] home patient appt to ?clean device/calibrate device otherwise as above Resident Activity Tracking Resident Involvement: Resident Care Provided Care Provided: Adult Hospital Medicine
--- NOTE | 2023-01-18 18:41 | Billing Data ---
Date of Service January 18, 2023 Coding Level of Care Code 33296 IN/OBS DISCH 30 MIN/LESS
[2023-01-18] MEDS ORDERED: ASPIRIN 81 MG ECTAB PO SCH (21:00)
[2023-01-18] MEDS ORDERED: hydroCHLOROthiazide 25 MG TAB PO SCH (21:00)
[2023-01-18] MEDS ORDERED: METOPROLOL SUCC 25MG EXT REL TAB PO SCH (21:00)
[2023-01-18] MEDS ORDERED: VALSARTAN 80 MG TAB PO SCH (21:00)
[2023-01-19] MEDS ORDERED: AZITHROMYCIN 500 MG in DEXTROSE 5% 250 ML IV SCH (04:00)
== END 2023-01-18 17:58 | disposition home or self-care (01) ==
LOC: 2N 23:28 → ED 23:28 → SUATTDRO 01-18 03:33 → 2N 01-18 05:00